=== PATIENT | female | born 2000 | race Caucasian/White ===

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

== ENCOUNTER → 2022-02-22 11:02 | Outpatient (BNVA) | payer MEDICAID, SELFPAY | PROVIDERS: PCP Nurse Practitioner; Visit Provider Nurse Practitioner | DX: J02.9 Acute pharyngitis, unspecified (principal); N94.5 Secondary dysmenorrhea; R05.9 Cough, unspecified; Z20.822 Contact with and (suspected) exposure to COVID-19 | CPT/HCPCS: 81025; 87070; 87400; 87426; 87880 ==

== ENCOUNTER 2022-05-21 07:30 | Emergency (ER) | payer MEDICAID, SELFPAY ==
[2022-05-21] VITALS (9 sets, daily range): BP systolic 88–101; BP diastolic 49–67; PULSE 102; RESP 16; TEMP 36.8; O2SAT 96–99; BMI 26.6
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
[2022-05-21] MEDS: sodium chloride 0.9% 1,000 ML 999 ML IV ×2 (08:11→10:28)
[2022-05-21 08:31] LABS: Basophils # 0.1 10^3/uL (0.0-0.1); Basophils % 0.9 %; Eosinophils # 0.4 10^3/uL (0.0-0.8); Eosinophils % 3.4 %; Hematocrit 39.1 % (37.0-47.0); Hemoglobin 13.3 g/dL (11.5-15.3); Lymphocytes # 2.3 10^3/uL (1.5-6.5); Lymphocytes % 21.2 %; Mean Corpuscular Hemoglobin 31.7 pg (28.0-34.0); Mean Corpuscular Volume 93.1 fl (81-99); Mean Platelet Volume 12.9 fL (7.4-10.4); Monocytes # 1.3 10^3/uL (0.2-0.9); Monocytes % 12.1 %; Neutrophils # 6.69 10^3/uL (1.8-8.0); Nucleated Red Blood Cells % 0 %; Platelet Count 328 10^3/cmm (130-400); Red Cell Distribution Width 12.9 % (12.1-15.1); White Blood Count 10.8 10^3/uL (4.5-13.0)
[2022-05-21 08:36] LABS: Alanine Aminotransferase 10 U/L (0-33); Albumin Level 4.2 g/dL (3.5-5.2); Alkaline Phosphatase 61 U/L (35-105); Anion Gap 14.8 (5-19); Aspartate Amino Transferase 16 U/L (0-32); Blood Urea Nitrogen 8 mg/dL (6-20); Calcium 9.3 mg/dL (8.5-10.5); Carbon Dioxide 24 mmol/L (22-29); Chloride 102 mmol/L (98-107); Creatinine Clr Calc Pharmacy 154.6934; Globulin 3.2 g/dL (1.3-4.6); Glomerular Filtration Rate 127.5 mL/min (90-130); Glucose 95 mg/dL (65-115); Lipase 14 U/L (13-60); Osmolality Calculated 282 mOsm/kg (285-295); Potassium 3.8 mmol/L (3.5-5.1); Sodium 137 mmol/L (136-145); Total Bilirubin 0.6 mg/dL (0.15-1.2); Total Protein 7.4 g/dL (6.6-8.7)
[2022-05-21 08:46] LABS: Slide Review Slide Review Perform
[2022-05-21 09:03] LABS: Add Urine Microscopic? NO; Charge for UA Resulting for Rev
[2022-05-21 09:07] LABS: Bilirubin Urine Neg (Negative); Blood Urine Neg (Negative); Glucose Urine UA Norm (Normal); Ketones Urine Negative (Negative); Leukocyte Esterase Urine Negative (Negative); Nitrate Urine Negative (Negative); Protein Urine Neg (Negative); Sulfosalicylic Acid Urine Negative (Negative); Urine Appearance Clear (CLEAR); Urine Color Yellow (Yellow); Urobilinogen Urine Norm (Negative); pH Urine 8 (5-7)
[2022-05-21 09:19] LABS: HCG Qualitative Urine. Negative (Negative)
--- NOTE | 2022-05-21 10:03 | CT_ITS ---
WS: [id number] CT ABDOMEN PELVIS TECHNIQUE: Noncontrast CT of the abdomen and pelvis with coronal and sagittal reformatted images. CLINICAL INFORMATION: Abdominal pain COMPARISON: April 18, 2020 DLP: 457.[address] scans at [facility] use at least one of these dose optimization techniques: automated e xposure control; mA and/or kV adjustment per patient size (includes targeted exams where dose is matc hed to clinical indication); or iterative reconstruction. FINDINGS: Splenectomy is new since April 18, 2020. Lung bases are well aerated. Noncontrast liver and gallbl adder are normal. Normal GE junction. Normal caliber abdominal aorta. Normal sigmoid colon. Normal ca liber abdominal aorta. Noncontrast pancreas is normal. Normal adrenal glands. No hydronephrosis. Norm al appendix in the RIGHT lower quadrant. No free fluid in the abdomen or pelvis. Bilateral physiologi c ovarian follicles. CT/CT abdomen pelvis wo con [id number] IMPRESSION: 1. Interval splenectomy since April 18, 2020. 2. No acute abdominal or pelvic findings.
== END 2022-05-21 11:00 | disposition home or self-care (01) ==
PROVIDERS: Emergency Provider Family Medicine; PCP Nurse Practitioner
DX: R10.12 Left upper quadrant pain (principal)
CPT/HCPCS: 74176; 80053; 81003; 81025; 83690; 85025; 96360; 99285; J7030

== ENCOUNTER 2023-03-18 09:09 | Emergency (ER) | payer SELFPAY ==
[2023-03-18 09:21] VITALS: BP 113/60; PULSE 73; TEMP 36.8; O2SAT 97; BMI 24.2
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
[2023-03-18] MEDS: tetanus-dipt-pertussis 0.5 mL SDV IM (09:35)
[2023-03-18 09:56] VITALS: BP 117/84; PULSE 63; RESP 16; O2SAT 97
== END 2023-03-18 09:57 | disposition home or self-care (01) ==
PROVIDERS: Emergency Provider Family Medicine; PCP Nurse Practitioner
DX: S91.331A Puncture wound without foreign body, right foot, initial encounter (principal); W45.0XXA Nail entering through skin, initial encounter; Z23 Encounter for immunization
CPT/HCPCS: 90715; 99283

== ENCOUNTER 2025-02-14 15:06 | Outpatient (CLI) | payer SELFPAY ==
--- NOTE | 2025-02-14 15:00 | US_ITS ---
WS: [id number] EARLY OBSTETRICAL ULTRASOUND (<14 WEEKS). HISTORY: Z34.90 - Encounter for supervision of normal , u... COMPARISON: None available. Single intrauterine gestational sac is identified. Cardiac activity at 171 BPM. [place]-rump length measures 2.4 cm which corresponds to a gestation of 9w1d. Normal-appearing yolk sac and amnion demonstrated. No subchorionic hemorrhage. No free fluid. Normal size ovaries with no mass. US/US OB <= 14 weeks fetus [id number] IMPRESSION: 1. Single intrauterine gestation of 9w1d with an EDC of 09/18/2025. 2. Normal cardiac activity.
== END 2025-02-14 15:07 | disposition home or self-care (01) ==
LOC: RAD 15:07
PROVIDERS: PCP Nurse Practitioner; Visit Provider Nurse Practitioner Women's Health
DX: Z34.90 Encounter for supervision of normal pregnancy, unspecified, unspecified trimester (principal)
CPT/HCPCS: 76801

== ENCOUNTER → 2025-02-16 07:48 | Outpatient (BNVA) | payer MEDICAID, SELFPAY | PROVIDERS: PCP Nurse Practitioner; Visit Provider Nurse Practitioner Women's Health | DX: N91.2 Amenorrhea, unspecified (principal) | CPT/HCPCS: 81025; 86850; 86900 ==

== ENCOUNTER → 2025-03-07 13:43 | Outpatient (BNVA) | payer MEDICAID, SELFPAY | PROVIDERS: PCP Nurse Practitioner; Visit Provider Nurse Practitioner Women's Health | DX: Z34.01 Encounter for supervision of normal first pregnancy, first trimester (principal) | CPT/HCPCS: 80307; 84315; 84443; 85025; 86592; 86762; 86803; 87086; 87340; 87491; 87591; 87661; 87806 ==

== ENCOUNTER → 2025-04-05 08:14 | Outpatient (BNVA) | payer MEDICAID, SELFPAY | PROVIDERS: PCP Nurse Practitioner; Visit Provider Nurse Practitioner Women's Health | DX: Z34.02 Encounter for supervision of normal first pregnancy, second trimester (principal); Z12.4 Encounter for screening for malignant neoplasm of cervix | CPT/HCPCS: 82105; 84315; 87624 ==

== ENCOUNTER → 2025-05-09 08:19 | Outpatient (BNVA) | payer MEDICAID, SELFPAY | PROVIDERS: PCP Nurse Practitioner; Visit Provider Obstetrics & Gynecology | DX: Z34.92 Encounter for supervision of normal pregnancy, unspecified, second trimester (principal); Z3A.21 21 weeks gestation of pregnancy | CPT/HCPCS: 84315 ==

== ENCOUNTER → 2025-05-31 07:51 | Outpatient (BNVA) | payer MEDICAID, SELFPAY | PROVIDERS: PCP Nurse Practitioner; Visit Provider Nurse Practitioner Women's Health | DX: Z34.92 Encounter for supervision of normal pregnancy, unspecified, second trimester (principal); Z3A.24 24 weeks gestation of pregnancy | CPT/HCPCS: 84315 ==